=== PATIENT | female | born 1990 | race American Indian/Alaskan Native ===

== ENCOUNTER 2016-11-08 18:31 | Outpatient (CLI) | payer MEDICAID ==
[2016-11-08] MEDS ORDERED: NACL 0.9% 1000 ML 1,000 ML IV ONE (18:44)
[2016-11-08] MEDS ORDERED: LACTATED RINGERS 1,000 ML IV ONE (19:10)
[2016-11-08 20:19] LABS: Bilirubin,Urine NEG (Negative); Blood,Urine NEG (Negative); Ketones,Urine NEG (Negative); Leukocyte Esterase,Urine NEG (Negative); Mucus,Urine FEW /HPF; Nitrite,Urine NEG (Negative); Protein,Urine <15 mg/dL mg/dL (Negative); Urobilinogen,Urine < 2.0 mg/dL (<2.0); WBC,Urine < 1.0 /HPF (0.0-6.0)
[2016-11-08 20:29] VITALS: BP 101/51
--- NOTE | 2016-11-09 08:17 | Ultrasound Report ---
BIOPHYSICAL PROFILE: 2 - breathing movements 2 - movements 2 - posture and tone 2 - Qualitative amniotic fluid volume 8 - TOTAL SCORE OF POSSIBLE 8 Heart Rate (bpm) 139 Gestation: single Amniotic Fluid: OSCAR = 10.3 cm Heart Rate: 146 BPM
== END 2016-11-08 21:25 | disposition home or self-care (01) ==
LOC: EDSTATUS 18:51 → TRG 18:59
PROVIDERS: ATTEND Obstetrics & Gynecology
DX: O36.8130 Decreased fetal movements, third trimester, not applicable or unspecified (principal); O26.893 Other specified pregnancy related conditions, third trimester; R07.9 Chest pain, unspecified; Z3A.29 29 weeks gestation of pregnancy
CPT/HCPCS: 59025; 76815; 76819; 81001; 96360; J7120

== ENCOUNTER 2017-01-05 17:15 | Outpatient (CLI) | payer SELFPAY ==
[2017-01-05 18:24] LABS: Bilirubin,Urine NEG (Negative); Blood,Urine NEG (Negative); Ketones,Urine NEG (Negative); Leukocyte Esterase,Urine NEG (Negative); Mucus,Urine FEW /HPF; Nitrite,Urine NEG (Negative); Protein,Urine <15 mg/dL mg/dL (Negative); Urobilinogen,Urine < 2.0 mg/dL (<2.0)
[2017-01-05 18:52] LABS: Hematocrit 34.4 % (30.3-42.9); Hemoglobin 10.9 gm/dl (10.1-14.3); Mean Corpuscular HGB Conc 32 % (30-34); Mean Corpuscular Volume 75 fl (79-97); Platelet Count 166 K/mm3 (140-440); Red Cell Distribution Width 15.9 % (13.2-15.2); White Blood Count 12.4 K/mm3 (4.5-11.0)
[2017-01-05 19:01] LABS: Mean Corpuscular Hemoglobin 24 pg (28-32)
[2017-01-05 19:11] LABS: Alanine Aminotransferase 17 units/L (7-56)
[2017-01-05 19:22] LABS: Lactate Dehydrogenase 222 units/L (91-180); Uric Acid 4.2 mg/dL (3.5-7.6)
[2017-01-05 20:23] VITALS: BP 119/60
[2017-01-05] MEDS ORDERED: TYLENOL PO ONE (20:30)
--- NOTE | 2017-01-06 08:00 | Ultrasound Report ---
ULTRASOUND BIOPHYSICAL PROFILE: History: well being Technique: Transabdominal ultrasound with Doppler interrogation. 2 - breathing movements 2 - movements 2 - posture and tone 2 - Qualitative amniotic fluid volume 8 - TOTAL SCORE OF POSSIBLE 8 Heart Rate (bpm) 145
--- NOTE | 2017-01-06 08:07 | Ultrasound Report ---
ULTRASOUND OB FOLLOWUP History: well-being. Comparison: 11/08/16. Technique: Transabdominal ultrasound with Doppler interrogation. Gestation: Single Position: Breech Amniotic Fluid: Within normal limits OSCAR = 7.1 cm Placenta: Fundal Placental Grade: 1 Heart Rate: 145 BPM BPD: 8.3 cm = 33 w 2 d HC: 33.4 cm = 38 w 1 d AC: 33.3 cm = 37 w 1 d FL: 7.1 cm = 36 w 4 d HC/AC Ratio: 1.0 Cephalic Index: 71.9 Estimated Weight: 2999 grams 28th percentile Clinical age = 38 w 0 d EDC: 01/19/17 US Gest. Age = 36 w 2 d EDC: 01/31/17
== END 2017-01-05 21:00 | disposition home or self-care (01) ==
LOC: TRG 17:15 → LD 17:18 → TRG 21:00
PROVIDERS: ATTEND Obstetrics & Gynecology
DX: O32.1XX0 Maternal care for breech presentation, not applicable or unspecified (principal); O47.1 False labor at or after 37 completed weeks of gestation; Z3A.37 37 weeks gestation of pregnancy
CPT/HCPCS: 36415; 59025; 76816; 76819; 81001; 82565; 83615; 84450; 84460; 84550; 85027; 86850; 86900; 86901

== ENCOUNTER 2017-01-06 12:48 | Inpatient (IN) | payer MEDICAID, OTHER ==
[2017-01-06] MEDS ORDERED: REGLAN IV ONE (13:03)
[2017-01-06] MEDS ORDERED: ANCEF/STERILE WATER 2 GM/20 ML 2 GM/20 ML SYRINGE IV NR (14:00)
[2017-01-06] MEDS ORDERED: LACTATED RINGERS 1,000 ML IV SCH (14:00)
[2017-01-06] MEDS ORDERED: BICITRA PO NR (14:00)
[2017-01-06] MEDS ORDERED: PITOCin/NS 20 UNIT/1000ML DRIP 20 UNITS/1,000 ML BAG IV SCH ×2 (14:00→21:20)
[2017-01-06] MEDS ORDERED: PEPCID IV NR (14:00)
[2017-01-06 15:48] LABS: Basophils % (Auto) 0.3 % (0.0-1.8); Eosinophils % (Auto) 8.4 % (0.0-4.3); Hemoglobin 11.6 gm/dl (10.1-14.3); Mean Corpuscular HGB Conc 32 % (30-34); Mean Corpuscular Volume 76 fl (79-97); Platelet Count 170 K/mm3 (140-440); Red Blood Count 4.77 M/mm3 (3.65-5.03); Red Cell Distribution Width 16.3 % (13.2-15.2); White Blood Count 12.3 K/mm3 (4.5-11.0)
[2017-01-06 15:49] LABS: Mean Corpuscular Hemoglobin 24 pg (28-32)
[2017-01-06] MEDS ORDERED: REGLAN ONE (15:53)
[2017-01-06 16:05] LABS: Alanine Aminotransferase 18 units/L (7-56)
[2017-01-06 16:34] LABS: Lactate Dehydrogenase 193 units/L (91-180); Uric Acid 4.9 mg/dL (3.5-7.6)
--- NOTE | 2017-01-06 16:43 | Anesthesia Consultation ---
<MYKE WHITE - Last Filed: 01/06/17 16:42> Anesthesia Consult and Med Hx Date of service: 01/06/17 - Airway Anesthetic Teeth Evaluation: Good, Chipped (top left incisor) ROM Head & Neck: Adequate Mental/Hyoid Distance: Adequate Mallampati Class: Class II Intubation Access Assessment: Probably Good - Pulmonary Exam CTA: Yes - Cardiac Exam Cardiac Exam: RRR - Pre-Operative Health Status ASA Pre-Surgery Classification: ASA2 Proposed Anesthetic Plan: Epidural, Spinal - Pulmonary Hx Asthma: No COPD: No Hx Pneumonia: No - Cardiovascular System Hx Hypertension: Yes (CHTN) - Central Nervous System Hx Seizures: No Hx Psychiatric Problems: No - Endocrine Hx Renal Disease: No Hx End Stage Renal Disease: No Hx Hypothyroidism: No Hx Hyperthyroidism: No - Hematic Hx Anemia: No Hx Sickle Cell Disease: No - Other Systems Hx Alcohol Use: No Hx Obesity: Yes <RADHA WEBB - Last Filed: 01/06/17 17:12> Anesthesia Consult and Med Hx - Pre-Operative Health Status ASA Pre-Surgery Classification: ASA3 - Additional Comments Anesthesia Medical History Comments: ASA 3 FOR MORBID OBESITY AND PIH
--- NOTE | 2017-01-06 16:44 | Anesthesia Day of Surgery ---
Anesthesia Day of Surgery - Day of Surgery Patient Examined: Yes Patient H&P Reviewed: Yes Patient is NPO: Yes
[2017-01-06] MEDS ORDERED: BENADRYL IV PRN (17:12)
[2017-01-06] MEDS ORDERED: NARCAN 0.4 MG/1 ML IV PRN ×3 (17:12→21:20)
[2017-01-06] MEDS ORDERED: ZOFRAN IV PRN ×2 (17:12→19:12)
[2017-01-06] MEDS ORDERED: MORPHINE IV PRN ×2 (17:13)
[2017-01-06] MEDS ORDERED: TORADOL IV PRN (17:13)
--- NOTE | 2017-01-06 17:25 | History and Physical Report ---
History of Present Illness Date of examination: 01/06/17 Date of admission: 01/06/17 12:48 Chief complaint: sent from [facility] for delivery History of present illness: Pt is a 26 year old -[place] female RORY 01/24/17 at 37w3d who presents from [facility] with diagnosis of chronic hypertension with superimposed preeclampsia with recommendation for delivery. She reports headache for the past two days, but denies blurry vision, scotomata or RUQ pain. She has had care at [facility] with comanagement by [employer] secondary to chronic hypertension on labetalol 200mg BID, questionable Rubella status, genital herpes, morbid obesity, h/o gestational diabetes and previous section x 1. She is GBS negative. On ultrasound today, the fetus is noted to be in complete breech presentation. 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 History: herpes Family/Genetic History: diabetes, hypertension, cancer Social history: no significant social history - Obstetrical History Expected Date of Delivery: 01/24/17 Actual Gestation: 37 Week(s) 3 Day(s) : 7 Para: 1 Hx # Term Pregnancies: 1 Number of Pregnancies: 0 Spontaneous Abortions: 5 Induced : 0 Number of Living Children: 1 Medications and Allergies Allergies Allergy/AdvReac Type Severity Reaction Status Date / Time No Known Allergies Allergy Unverified 11/08/16 18:41 Home Medications Medication Instructions Recorded Confirmed Last Taken Type No Known Home Medications [No 11/08/16 11/08/16 Unknown History Reported Home Medications] Active Meds: Active Medications Citric Acid/Sodium Citrate (Bicitra) 30 ml PO ONCE NR Stop: 01/06/17 19:00 Diphenhydramine HCl (Benadryl) 25 mg IV Q4H PRN PRN Reason: Itching Famotidine (Pepcid) 20 mg IV ONCE NR Stop: 01/06/17 19:00 Cefazolin Sodium (Ancef/Sterile Water 2 Gm/20 Ml) 2 gm in 20 mls @ 80 mls/hr IV PREOP NR PRN Reason: Protocol Stop: 01/06/17 19:00 Lactated Ringer's (Lactated Ringers) 1,000 mls @ 2,250 mls/hr IV PREOP ARNULFO Stop: 01/07/17 14:27 Oxytocin/Sodium Chloride (Pitocin/Ns 20 Unit/1000ml Drip) 20 units in 1,000 mls @ 0 mls/hr IV TITR ARNULFO PRN Reason: As Directed Ketorolac Tromethamine (Toradol) 30 mg IV Q6H PRN PRN Reason: Pain, Moderate (4-6) Stop: 01/11/17 17:12 Morphine Sulfate (Morphine) 2 mg IV Q4H PRN PRN Reason: Pain, Moderate (4-6) Morphine Sulfate (Morphine) 4 mg IV Q4H PRN PRN Reason: Pain , Severe (7-10) Naloxone HCl (Narcan 0.4 Mg/1 Ml) 0.2 mg IV Q2MIN PRN PRN Reason: Res Rate </= 8 or 02 SAT < 92% Stop: 01/08/17 17:13 Ondansetron HCl (Zofran) 4 mg IV Q8H PRN PRN Reason: Nausea And Vomiting Review of Systems All systems: negative - Vital Signs Vital signs: Vital Signs Pulse BP 80 85/50 01/06/17 13:57 01/06/17 13:57 Temp Pulse Resp BP Pulse Ox 97.1 F L 80 20 133/70 99 01/06/17 14:00 01/06/17 16:46 01/06/17 14:00 01/06/17 16:46 01/06/17 14:05 - Physical Exam Breasts: Positive: deferred Abdomen: Positive: soft (morbidly obese, gravid ) Uterus: Positive: enlarged (gravid) Extremities: Positive: normal - Obstetrical FHR: auscultation normal Uterine Contraction Monitor Mode: External Uterine Contraction Pattern: Absent Uterine Tone Measurement Phase: Resting Uterine Contraction Intensity: Mild Results Result Diagrams: 01/06/17 15:13 01/06/17 15:13 Abnormal lab results 01/06/17 01/06/17 Range/Units 15:13 15:13 WBC 12.3 H (4.5-11.0) K/mm3 MCV 76 L (79-97) fl MCH 24 L (28-32) pg RDW 16.3 H (13.2-15.2) % Eos % (Auto) 8.4 H (0.0-4.3) % Eos # 1.0 H (0.0-0.4) K/mm3 Seg Neutrophils % 71.6 H (40.0-70.0) % Seg Neutrophils # 8.8 H (1.8-7.7) K/mm3 Creatinine 0.4 L (0.7-1.2) mg/dL Lactate Dehydrogenase 193 H (91-180) units/L All other labs normal. Assessment and Plan A: IUP at 37w3d Chronic Hypertension with Superimposed Preeclampsia Malpresentation Previous x 1 Morbid Obesity Genital Herpes GBS Negative P: Admit labs and PIH panel Proceed with repeat section and other indicated procedures.
[2017-01-06] MEDS ORDERED: ZOFRAN ONE (17:35)
[2017-01-06] MEDS ORDERED: MORPHINE ONE (17:35)
[2017-01-06] MEDS ORDERED: LACTATED RINGERS 0 ML ONE (17:50)
[2017-01-06] MEDS ORDERED: NACL 0.9% 1000 ML 0 ML ONE (17:50)
[2017-01-06] MEDS ORDERED: NACL 0.9% IR ONE (18:05)
[2017-01-06] MEDS ORDERED: WATER FOR IRRIG STERILE IR ONE (18:05)
[2017-01-06] MEDS ORDERED: DILAUDID ONE ×2 (18:16→18:36)
[2017-01-06] MEDS ORDERED: VERSED ONE (18:25)
[2017-01-06] MEDS ORDERED: DIPRIVAN 10 MG/ML IV ONE (18:48)
[2017-01-06] MEDS ORDERED: NEO SYNEPHRINE/NS Syringe(OR USE) IV ONE (19:00)
[2017-01-06] MEDS ORDERED: LACTATED RINGERS 1,000 ML ONE (19:11)
[2017-01-06] MEDS ORDERED: BENADRYL PO PRN (19:12)
--- NOTE | 2017-01-06 19:12 | Procedure Note ---
OB Delivery Note - Delivery Date of Delivery: 01/06/17 Surgeon: KEVEN CONTRERAS Estimated blood loss: 1000cc - Section Preop diagnosis: repeat , breech, other (Chronic Hypertension with Suuperimposed Preeclampsia ) Postop diagnosis: same section procedure: section, repeat low transverse Disposition: PACU Complications: none - A at 1 minute: 8 at 5 minutes: 9 Infant Gender: Male (2832g (6lb 4 oz))
--- NOTE | 2017-01-06 19:12 | Operative Report ---
Operative Report Operative Report: Date of procedure: January 06, 2017 Preoperative diagnosis: 1) IUP at 37w3d 2) Chronic Hypertension with Superimposed Preeclampsia 3) Malpresentation 4) Previous x 1 5) Morbid Obesity Postoperative diagnosis: Same Procedure: Repeat low transverse section Surgeon: Michelle Crouch M.D. Anesthesia: Spinal-epidural Findings: 1) Viable male , Apgars 8 and 9, weight 2832 g, (6 lb 4 oz) 2) Normal-appearing uterus ovaries and tubes Estimated blood loss: 1000mL IV fluids: 2900 mL Urine output: 400 mL, clear at the end of the procedure Drains: [place] to gravity Specimens: Placenta to pathology Complications: None. Counts correct x 3 Disposition: Stable to PACU Indication for procedure: Pt is a 26 year old at 37w3d presents with chronic hypertension with superimposed preeclampsia, malpresenation and previous x 1. The decision is made to proceed with repeat delivery. Operation in detail: After the risks, benefits, alternatives and complications were explained to the patient she gave informed consent for the procedure. She was subsequently taken to the operating room where spinal-epidural anesthesia was noted to be adequate. She was subsequently placed in the dorsal supine position with leftward tilt and prepped and draped in a normal sterile fashion. heart tones were noted to be in the 145s prior to incision. A timeout was performed. A Pfannenstiel skin incision was made with the knife and carried down to the layer of the fascia with the Bovie. Multiple bleeding vessels in the subcutaneous tissue on the left side were coagulated with the Bovie. The fascia was incised in the midline and the fascial incision was extended bilaterally with the Bovie. Attention was then turned to the superior aspect of the incision which was grasped with two Kochers, tented up, and dissected off the rectus muscles. Attention was then turned to the inferior aspect of the incision which was grasped with two Kochers, tented up and dissected off the rectus muscles. The rectus muscles were then in the midline. The peritoneum was then entered sharply between two Sonya clamps. The peritoneal incision was extended with good visualization of the bladder. The peritoneal incision was then stretched. An Issac self-retaining retractor was placed for visualization. The bladder blade was placed. The vesicouterine peritoneum was grasped with smooth pickups and incised with Metzenbaum scissors. Metzenbaum scissors were used to extend the incision bilaterally. The bladder flap was then created digitally and the bladder blade was replaced. A transverse incision was made in the lower uterine segment with a knife and extended bilaterally with the bandage scissors. The buttocks and legs were delivered, quickly followed by the torso, arms and shoulders then head without difficulty. was bulb suctioned at delivery. The cord was clamped and cut and the was handed to NICU staff in attendance. Cord blood was collected. The placenta was then delivered manually. The uterus was then cleared of all clots and debris. The hysterotomy was then reapproximated with 0 Vicryl in a running locked fashion. A second layer of the same suture was used in imbricating fashion. The hysterotomy was inspected and hemostasis was noted. The Issac self-retaining retractor was removed. The gutters were irrigated and cleared of all clots and debris. The hysterotomy was again inspected and noted to be hemostatic. Surgicel was placed over the hysterotomy. Intercede was placed on the anterior surface of the uterus. The peritoneum was reapproximated with 2-0 Vicryl in a running fashion. The rectus muscles were then reapproximated with 2-0 Vicryl in an interrupted fashion and covered with Surgicel. The fascia was reapproximated with 0 Vicryl in a running fashion. The subcutaneous tissue was reapproximated with 3-0 Vicryl in a running fashion. The skin was reapproximated with 4-0 Vicryl in a subcuticular fashion. The incision was then covered with steri strips and a pressure dressing. The procedure was then ended. The patient tolerated the procedure well and was taken to the PACU in stable condition. All instrument, lap, and needle counts were correct 3.
--- NOTE | 2017-01-06 19:41 | Post Anesthesia Evaluation ---
- Post Anesthesia Evaluation Patient Participated: Yes Airway Patent: Yes Stable Respiratory Function: Yes Nausea/Vomiting: No Temp > 96.8F: Yes Pain Manageable: Yes Adequeate Hydration: Yes Anesthesia Complications: No Block Receding Appropriately: Yes Patient on Ventilator: No
[2017-01-06] MEDS ORDERED: MORPHINE PCA 30MG/30ML IV SCH (20:00)
[2017-01-06] MEDS ORDERED: LANSINOH TP PRN (21:20)
[2017-01-06] MEDS ORDERED: SODIUM CHLORIDE FLUSH SYRINGE 10 ML IV PRN (21:20)
[2017-01-06] MEDS ORDERED: TUCKS PAD TP PRN (21:20)
[2017-01-06] MEDS ORDERED: D5LR 1,000 ML IV SCH (21:20)
[2017-01-06] MEDS: PERCOCET 5/325 PO PRN (21:56)
[2017-01-06] MEDS: TORADOL IV PRN (21:57)
[2017-01-07] MEDS: FEOSOL PO SCH ×3 (00:06→22:21)
[2017-01-07] MEDS: MILK OF MAGNESIA PO SCH (00:07)
[2017-01-07] MEDS: ANCEF/NS 1 GM/50 ML 1 GM/50 ML BAG IV SCH ×2 (00:07→07:58)
[2017-01-07] MEDS: TORADOL IV PRN (06:48)
[2017-01-07 07:08] LABS: Hematocrit 30.7 % (30.3-42.9); Hemoglobin 9.8 gm/dl (10.1-14.3)
[2017-01-07] MEDS: PERCOCET 5/325 PO PRN ×3 (08:59→19:35)
[2017-01-07] MEDS: MOTRIN PO PRN ×3 (08:59→19:33)
[2017-01-07] MEDS: MYLICON PO PRN (11:10)
--- NOTE | 2017-01-07 13:01 | Progress Note ---
Assessment and Plan A/P POD#1 s/p repeat c/sec for pree BP normal; No sx of preeclampsia VSS 134/59 - 88- 18-98.3 T Breast feeding s/p consultation incision c/d/ i ( dressing off) patient walking halls rubella IMM Desires Mirena for control continue routine Post op mgt Subjective - Subjective Date of service: 01/07/17 Principal diagnosis: s/p C/sec for preeclampsia repeat Patient reports: appetite normal, voiding normally, pain well controlled, flatus , ambulating normally : doing well, nursing well Objective - Vital Signs Latest vital signs: Vital Signs Temp Pulse Resp BP Pulse Ox 01/07/17 09:00 18 01/07/17 08:30 18 01/07/17 08:10 98.3 F 88 18 134/59 01/07/17 06:48 18 01/07/17 06:20 18 01/07/17 04:30 18 01/07/17 04:00 98.6 F 68 20 123/61 01/07/17 02:45 18 01/07/17 00:00 98.2 F 75 20 102/58 01/06/17 21:57 18 01/06/17 21:56 18 01/06/17 21:00 98.1 F 70 20 114/61 01/06/17 20:37 98.1 F 01/06/17 20:21 68 12 101/50 98 01/06/17 20:16 68 20 121/40 99 01/06/17 20:00 66 20 101/51 99 01/06/17 19:55 70 15 104/43 100 01/06/17 19:51 70 17 99/48 99 01/06/17 19:46 66 22 101/40 100 01/06/17 19:41 67 22 97/40 100 01/06/17 19:35 70 17 112/61 100 01/06/17 19:30 71 21 99/53 100 01/06/17 19:25 69 21 113/60 100 01/06/17 19:22 97.7 F 68 20 105/41 100 01/06/17 16:46 80 133/70 01/06/17 16:31 88 121/63 01/06/17 16:16 77 133/64 01/06/17 16:02 76 139/65 01/06/17 15:47 80 129/58 01/06/17 15:32 88 132/62 01/06/17 15:02 77 140/63 01/06/17 14:32 78 115/59 01/06/17 14:18 85 111/52 01/06/17 14:05 77 99 01/06/17 14:00 97.1 F L 80 20 93/55 99 01/06/17 13:58 83 93/55 01/06/17 13:57 80 85/50 Intake and Output 01/06/17 01/07/17 01/07/17 22:59 06:59 14:59 Intake Total 1300 530 Output Total 800 200 Balance 500 330 Intake: IV 1300 50 ANCEF/NS 1 GM/50 ML 1 gm 50 In 50 ml @ 100 mls/hr IV Q8H [facility] Rx#:[id number] Oral 480 Output: Urine 800 200 Indwelling Catheter 200 Other: Total, Intake Amount 480 Total, Output Amount 200 - Exam Breasts: Present: normal Cardiovascular: Present: Regular rate, Normal S1 Lungs: Present: Clear to auscultation, Normal air movement Abdomen: Present: normal appearance, soft, normal bowel sounds Uterus: Present: normal, firm, fundal height below umbilicus (3cm below ). Absent: bogginess, tenderness Extremities: Present: normal Deep Tendon Reflex Grade: Normal +2 Incision: Present: normal, dry, intact - Labs Labs: Abnormal lab results 01/06/17 01/06/17 01/07/17 Range/Units 15:13 15:13 06:47 WBC 12.3 H (4.5-11.0) K/mm3 Hgb 9.8 L (10.1-14.3) gm/dl MCV 76 L (79-97) fl MCH 24 L (28-32) pg RDW 16.3 H (13.2-15.2) % Eos % (Auto) 8.4 H (0.0-4.3) % Eos # 1.0 H (0.0-0.4) K/mm3 Seg Neutrophils % 71.6 H (40.0-70.0) % Seg Neutrophils # 8.8 H (1.8-7.7) K/mm3 Creatinine 0.4 L (0.7-1.2) mg/dL Lactate Dehydrogenase 193 H (91-180) units/L
--- NOTE | 2017-01-07 14:09 | Progress Note ---
Subjective Date of service: 01/07/17 Principal diagnosis: s/p C/sec for preeclampsia repeat Interval history: 1st POD after Patient is in the bed, comfortable. Pain is well controlled with pain meds. Ambulated well. No residual neurological defit. No pruritus. No anesthesia complications Objective - Constitutional Vitals: Vital Signs - 12hr 01/07/17 01/07/17 01/07/17 02:45 04:00 04:30 Temperature 98.6 F Pulse Rate 68 Respiratory 18 20 18 Rate Blood Pressure 123/61 01/07/17 01/07/17 01/07/17 06:20 06:48 08:10 Temperature 98.3 F Pulse Rate 88 Respiratory 18 18 18 Rate Blood Pressure 134/59 01/07/17 01/07/17 08:30 09:00 Temperature Pulse Rate Respiratory 18 18 Rate Blood Pressure - Labs CBC & Chem 7: 01/07/17 06:47 01/06/17 15:13 Labs: Abnormal lab results 01/06/17 01/06/17 01/07/17 Range/Units 15:13 15:13 06:47 WBC 12.3 H (4.5-11.0) K/mm3 Hgb 9.8 L (10.1-14.3) gm/dl MCV 76 L (79-97) fl MCH 24 L (28-32) pg RDW 16.3 H (13.2-15.2) % Eos % (Auto) 8.4 H (0.0-4.3) % Eos # 1.0 H (0.0-0.4) K/mm3 Seg Neutrophils % 71.6 H (40.0-70.0) % Seg Neutrophils # 8.8 H (1.8-7.7) K/mm3 Creatinine 0.4 L (0.7-1.2) mg/dL Lactate Dehydrogenase 193 H (91-180) units/L
[2017-01-07] MEDS ORDERED: M-M-R II VACCINE SUB-Q ONE (19:15)
[2017-01-08] MEDS: PERCOCET 5/325 PO PRN ×5 (01:30→19:48)
[2017-01-08] MEDS: MOTRIN PO PRN ×4 (01:30→23:11)
[2017-01-08] MEDS: MILK OF MAGNESIA PO SCH ×4 (04:33→21:55)
[2017-01-08] MEDS ORDERED: BOOSTRIX IM ONE (06:00)
[2017-01-08] MEDS: FEOSOL PO SCH ×2 (08:26→23:16)
[2017-01-08] MEDS: MYLICON PO PRN (15:12)
--- NOTE | 2017-01-08 15:29 | Progress Note ---
Assessment and Plan O: VSS AF BP: 120-130/60-70 PP H/H: 9.8/30.7 A: Stable POD #2 CHTN-controlled, no meds Anemia P: Iron BID Colace daily D/C in am Subjective - Subjective Date of service: 01/08/17 Principal diagnosis: s/p C/sec for preeclampsia repeat Patient reports: appetite normal, voiding normally, pain well controlled, flatus , ambulating normally [place]: doing well Objective - Vital Signs Latest vital signs: Vital Signs Temp Pulse Resp BP 01/08/17 08:25 97.9 F 84 20 120/70 01/07/17 16:55 98.4 F 84 20 118/70 Intake and Output 01/08/17 01/08/17 01/08/17 06:59 14:59 22:59 Intake Total 720 Balance 720 Intake: Oral 720 Other: Total, Intake Amount 480 # Voids Void 1 - Exam Breasts: Present: deferred Abdomen: Present: normal appearance, soft. Absent: distention Uterus: Present: normal, firm, fundal height below umbilicus. Absent: bogginess Extremities: Present: normal. Absent: edema
--- NOTE | 2017-01-08 15:31 | Discharge Summary ---
Providers - Providers Date of Admission: 01/06/17 12:48 Date of discharge: 01/09/17 Attending physician: KEVEN CONTRERAS 01/06/17 21:20 Consult to Radar Scientist [CONS] Routine Reason For Exam: Primary care physician: KEVEN CONTRERAS Hospitalization Reason for admission: IUP at term Delivery: Procedure: repeat low transverse Episiotomy: none Laceration: none Incision: normal, dry, intact Other procedures: none Discharge diagnosis: IUP at term delivered [place] baby: male Condition at discharge: Good Disposition: DC-01 TO HOME OR SELFCARE Plan - Discharge Medications Prescriptions: Docusate Sodium [Colace] 100 mg PO BID PRN #60 capsule PRN Reason: Constipation Ferrous Sulfate [Feosol 325 MG tab] 325 mg PO BID #30 tablet Ibuprofen [Motrin] 600 mg PO Q8H PRN #30 tablet PRN Reason: Pain oxyCODONE /ACETAMINOPHEN [Percocet 5/325] 1 tab PO Q6HR PRN #30 tablet PRN Reason: Pain - Provider Discharge Summary Activity: routine, no sex for 6 weeks, no heavy lifting 4 weeks, no strenuous exercise Additional instructions: [] Smoking cessation referral if applicable(refer to patient education folder for contact #) [] Refer to [facility] Booklet Call your doctor immediately for: * Fever > 100.5 * Heavy vaginal bleeding ( >1 pad per hour) * Severe persistent headache * Shortness of breath * Reddened, hot, painful area to leg or breast * Drainage or odor from incision. * Keep incision clean and dry at all times and follow doctor's instructions regarding bathing/showering - Follow up plan Follow up: KEVEN CONTRERAS MD [Primary Care Provider] - 14 Days (RTO 2 weeks for incision check)
[2017-01-09] MEDS: PERCOCET 5/325 PO PRN ×5 (02:14→21:46)
[2017-01-09] MEDS: MILK OF MAGNESIA PO SCH (03:30)
[2017-01-09] MEDS: MOTRIN PO PRN ×4 (05:59→23:57)
[2017-01-09] MEDS ORDERED: HYDROGEN PEROXIDE TP ONE (10:00)
[2017-01-09] MEDS: FEOSOL PO SCH ×2 (11:31→21:46)
--- NOTE | 2017-01-09 13:29 | Progress Note ---
Assessment and Plan O:VSS AF A: incision dehiscence POD # 3 Anemia P: Cleaned and packed with i Subjective - Subjective Date of service: 01/09/17 Principal diagnosis: s/p C/sec for preeclampsia repeat Patient reports: appetite normal, voiding normally, pain well controlled, flatus , ambulating normally, other (c/o incision opening) [place]: doing well, nursing well Objective - Vital Signs Latest vital signs: Vital Signs Temp Pulse Resp BP 01/09/17 00:00 98.8 F 84 20 114/54 01/08/17 16:45 99.5 F 76 20 124/74 Intake and Output 01/08/17 01/09/17 01/09/17 22:59 06:59 14:59 Intake Total 480 240 Balance 480 240 Intake: Oral 480 240 Other: Total, Intake Amount 240 240 # Voids Void 1 1 1 # Bowel Movements 1 - Exam Breasts: Present: normal, Lungs: Present: Normal air movement Abdomen: Present: normal appearance, soft. Absent: distention, tenderness Uterus: Present: normal, firm, fundal height below umbilicus. Absent: bogginess , tenderness Extremities: Present: normal, edema Incision: Present: skin (left side about 1cm open, no active bleeding)
[2017-01-09] MEDS ORDERED: ZOFRAN ODT PO PRN (17:24)
[2017-01-09] MEDS ORDERED: AMBIEN PO PRN (22:00)
[2017-01-10] MEDS: PERCOCET 5/325 PO PRN ×4 (02:04→17:01)
[2017-01-10] MEDS: MOTRIN PO PRN ×3 (06:00→17:02)
--- NOTE | 2017-01-10 12:44 | Progress Note ---
Assessment and Plan A/P POD#3 s/p repeat c/sec for pree incision seperated afebrile will give kecritical access hospital wound health to see patient F/u in clinic fo post op check in 2 days continue with discharge Subjective - Subjective Date of service: 01/10/17 Principal diagnosis: s/p C/sec for preeclampsia repeat Patient reports: appetite normal, voiding normally, pain well controlled, flatus , ambulating normally : doing well Objective - Vital Signs Latest vital signs: Vital Signs Temp Pulse Resp BP 01/10/17 09:06 98.3 F 76 17 120/61 01/10/17 00:00 98.6 F 81 16 122/82 01/09/17 16:55 98.3 F 86 20 124/84 Intake and Output 01/09/17 01/10/17 01/10/17 22:59 06:59 14:59 Intake Total 120 600 Balance 120 600 Intake: Oral 120 Intake, Free Water 600 Other: Total, Intake Amount 120 # Voids Void 1 # Bowel Movements 1 - Exam Breasts: Present: normal Cardiovascular: Present: Regular rate, Normal S1 Lungs: Present: Clear to auscultation, Normal air movement Abdomen: Present: normal appearance, soft, normal bowel sounds. Absent: distention, tenderness, guarding Uterus: Present: normal, firm, fundal height below umbilicus. Absent: bogginess , tenderness Extremities: Present: normal Deep Tendon Reflex Grade: Normal +2 Incision: Present: skin (small area on the left of incision 2cm using iodofoam to pack 3x daily )
[2017-01-10 17:27] VITALS: BP 128/73
== END 2017-01-10 20:30 | disposition home or self-care (01) | DRG 765 ==
LOC: APU 12:48 → OB 21:17
PROVIDERS: ADMIT Obstetrics & Gynecology; ATTEND Obstetrics & Gynecology
PROC: 10D00Z1 Extraction of Products of Conception, Low, Open Approach (ICD-10-PCS; principal; 2017-01-06)
DX: O32.1XX0 Maternal care for breech presentation, not applicable or unspecified (principal); O98.32 Other infections with a predominantly sexual mode of transmission complicating childbirth; Z68.42 Body mass index [BMI] 45.0-49.9, adult; O14.94 Unspecified pre-eclampsia, complicating childbirth; O34.211 Maternal care for low transverse scar from previous cesarean delivery; A60.00 Herpesviral infection of urogenital system, unspecified; O99.214 Obesity complicating childbirth; E66.01 Morbid (severe) obesity due to excess calories; Z3A.37 37 weeks gestation of pregnancy; Z37.0 Single live birth; Z83.3 Family history of diabetes mellitus; Z80.9 Family history of malignant neoplasm, unspecified; Z82.49 Family history of ischemic heart disease and other diseases of the circulatory system
CPT/HCPCS: 36415; 82565; 83615; 84450; 84460; 84550; 85014; 85018; 85025; 86762; 86850; 86900; 86901; 88307; 90471; 90715; 99211; A6250; C1765; G0463; J0690; J1170; J1885; J2250; J2270; J2370; J2405; J2590; J2704; J2765; J7030; J7120; J7121; Q0162

== ENCOUNTER 2017-10-20 20:50 | Emergency (ER) | payer OTHER, MEDICAID ==
[2017-10-20] MEDS ORDERED: MOTRIN PO ONE (23:04)
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
[2017-10-21 05:39] VITALS: BP 146/85
== END 2017-10-21 00:20 | disposition home or self-care (01) ==
LOC: ED 20:50
DX: S39.012A Strain of muscle, fascia and tendon of lower back, initial encounter (principal); S13.4XXA Sprain of ligaments of cervical spine, initial encounter; S76.912A Strain of unspecified muscles, fascia and tendons at thigh level, left thigh, initial encounter; S76.911A Strain of unspecified muscles, fascia and tendons at thigh level, right thigh, initial encounter; I10 Essential (primary) hypertension; V89.2XXA Person injured in unspecified motor-vehicle accident, traffic, initial encounter; Y93.89 Activity, other specified; Y92.89 Other specified places as the place of occurrence of the external cause; Y99.8 Other external cause status
CPT/HCPCS: 99283

== ENCOUNTER 2020-10-05 05:27 | Emergency (ER) | payer MEDICAID ==
[2020-10-05 05:51] VITALS: BP 123/82
[2020-10-05 08:35] LABS: Bilirubin,Urine NEG (Negative); Blood,Urine NEG (Negative); Color,Urine Yellow (Yellow); Mucus,Urine 1+ /HPF
--- NOTE | 2020-10-05 08:46 | XRay Report ---
Bilateral ankles INDICATION: Swelling FINDINGS: Alignment appears normal bilaterally. Talar dome appears normal. No acute fractures seen. C alcaneus appears normal. IMPRESSION: No acute findings are seen in either ankle. Lumbar spine series INDICATION: Back pain FINDINGS: Alignment appears normal. No compression fractures seen. Mild facet degenerative change. Signer Name: Robbie Garg MD Signed: 10/05/2020 8:42 AM Workstation Name: [id number]
--- NOTE | 2020-10-05 08:46 | XRay Report ---
Bilateral ankles INDICATION: Swelling FINDINGS: Alignment appears normal bilaterally. Talar dome appears normal. No acute fractures seen. C alcaneus appears normal. IMPRESSION: No acute findings are seen in either ankle. Lumbar spine series INDICATION: Back pain FINDINGS: Alignment appears normal. No compression fractures seen. Mild facet degenerative change. Signer Name: Robbie Garg MD Signed: 10/05/2020 8:42 AM Workstation Name: [id number]
--- NOTE | 2020-10-05 09:51 | Vascular Lab Report ---
Bilateral lower extremity Doppler venous ultrasound INDICATION: Leg pain and swelling FINDINGS: Bilateral common femoral veins, superficial femoral veins and popliteal veins have normal c ompressibility and phasic flow. IMPRESSION: No evidence for DVT in bilateral lower extremities. Signer Name: Robbie Garg MD Signed: 10/05/2020 9:47 AM Workstation Name: [id number]
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
[2020-10-05 10:36] LABS: Basophils % (Auto) 0.6 % (0.0-1.8); Eosinophils # (Auto) 0.3 K/mm3 (0.0-0.4); Eosinophils % (Auto) 3.5 % (0.0-4.3); Hematocrit 38.5 % (30.3-42.9); Hemoglobin 12.6 gm/dl (10.1-14.3); Lymphocytes # (Auto) 2.6 K/mm3 (1.2-5.4); Mean Corpuscular HGB Conc 33 % (30-34); Mean Corpuscular Volume 78 fl (79-97); Monocytes # (Auto) 0.8 K/mm3 (0.0-0.8); Monocytes % (Auto) 9.5 % (0.0-7.3); Platelet Count 159 K/mm3 (140-440); Red Blood Count 4.97 M/mm3 (3.65-5.03); Red Cell Distribution Width 14.4 % (13.2-15.2)
[2020-10-05] MEDS ORDERED: IBUPROFEN 800 MG TAB PO ONE (11:18)
[2020-10-05] MEDS ORDERED: KETOROLAC 10 MG TAB PO ONE (11:23)
[2020-10-05 12:03] LABS: Alanine Aminotransferase 22 units/L (7-56); Albumin 3.6 g/dL (3.9-5); BUN/Creatinine Ratio 18; Blood Urea Nitrogen 11 mg/dL (7-17); Calcium 8.3 mg/dL (8.4-10.2); Hemolysis Index 76
== END 2020-10-05 12:35 | disposition home or self-care (01) ==
LOC: ED 05:27
DX: S96.912A Strain of unspecified muscle and tendon at ankle and foot level, left foot, initial encounter (principal); S96.911A Strain of unspecified muscle and tendon at ankle and foot level, right foot, initial encounter; S39.012A Strain of muscle, fascia and tendon of lower back, initial encounter; M79.89 Other specified soft tissue disorders; I10 Essential (primary) hypertension; Z98.890 Other specified postprocedural states; Z79.1 Long term (current) use of non-steroidal anti-inflammatories (NSAID); Z79.899 Other long term (current) drug therapy; Z88.8 Allergy status to other drugs, medicaments and biological substances; X58.XXXA Exposure to other specified factors, initial encounter; Y93.89 Activity, other specified; Y92.89 Other specified places as the place of occurrence of the external cause; Y99.8 Other external cause status
CPT/HCPCS: 36415; 72100; 80053; 81001; 83880; 84703; 85025; 93970